=== PATIENT | female | born 1970 | race Caucasian/White ===

== ENCOUNTER → 2021-09-02 | Outpatient (CLI) | payer BC ==
[2021-09-02 16:25] LABS: BASOPHILS # (AUTO) 0.1 10^3/uL (0.0-0.1); BASOPHILS % (AUTO) 1 % (0-10); EOSINOPHILS # (AUTO) 0.3 10^3/uL (0.0-0.3); EOSINOPHILS % (AUTO) 3 % (0-10); HEMATOCRIT 41 % (35-52); HEMOGLOBIN 13.6 g/dL (11.5-16.0); LYMPHOCYTES # (AUTO) 2.3 10^3/uL (1.0-4.0); LYMPHOCYTES % (AUTO) 29 % (12-44); MEAN CORPUSCULAR HEMOGLOBIN 29 pg (25-34); MEAN CORPUSCULAR HGB CONC 33 g/dL (32-36); MEAN CORPUSCULAR VOLUME 86 fL (80-99); MEAN PLATELET VOLUME 10.7 fL (9.0-12.2); MONOCYTES # (AUTO) 0.6 10^3/uL (0.0-1.0); MONOCYTES % (AUTO) 7 % (0-12); NEUTROPHILS # (AUTO) 4.7 10^3/uL (1.8-7.8); NEUTROPHILS % (AUTO) 59 % (42-75); PLATELET COUNT 265 10^3/uL (130-400); WHITE BLOOD COUNT 7.9 10^3/uL (4.3-11.0)
[2021-09-02 16:49] LABS: ERYTHROCYTE SEDIMENTATION RATE 14 MM/HR (0-30)
[2021-09-02 16:51] LABS: POTASSIUM 3.6 MMOL/L (3.6-5.0)
[2021-09-02 16:53] LABS: CALCIUM 9.2 MG/DL (8.5-10.1)
[2021-09-02 16:54] LABS: TOTAL PROTEIN 6.7 GM/DL (6.4-8.2)
[2021-09-02 16:56] LABS: BILIRUBIN,TOTAL 0.6 MG/DL (0.1-1.0)
[2021-09-02 16:58] LABS: CREATININE SERUM 0.69 MG/DL (0.60-1.30)
[2021-09-02 17:01] LABS: URIC ACID 3.7 MG/DL (2.6-7.2)
[2021-09-02 17:22] LABS: FREE T4 (FREE THYROXINE) 0.96 NG/DL (0.70-1.48)
== END ==
LOC: LAB 15:56
PROVIDERS: ATTEND Nurse Practitioner Family
DX: L63.9 Alopecia areata, unspecified (principal); M79.7 Fibromyalgia; R53.83 Other fatigue
CPT/HCPCS: 36415; 80053; 84439; 84443; 84480; 84550; 85025; 85652; 86038; 86039; 86141; 86160; 86225; 86235; 86431